=== PATIENT | female | born 1960 | race Caucasian/White ===

== ENCOUNTER → 2018-04-15 | Outpatient (CLI) | payer OTHER | LOC: FIMAGING 15:29 | PROVIDERS: ATTEND Internal Medicine | DX: M12.841 Other specific arthropathies, not elsewhere classified, right hand (principal); M12.842 Other specific arthropathies, not elsewhere classified, left hand ==

== ENCOUNTER → 2018-06-08 | Outpatient (CLI) | payer OTHER | LOC: FIMAGING 12:55 | PROVIDERS: ATTEND Internal Medicine | DX: Z13.820 Encounter for screening for osteoporosis (principal); M85.89 Other specified disorders of bone density and structure, multiple sites; Z78.0 Asymptomatic menopausal state; Z92.241 Personal history of systemic steroid therapy ==

== ENCOUNTER → 2018-10-06 | Outpatient (CLI) | payer OTHER | LOC: FIMAGING 13:52 | PROVIDERS: ATTEND Internal Medicine | DX: M81.0 Age-related osteoporosis without current pathological fracture (principal) ==

== ENCOUNTER → 2019-01-03 | Outpatient (CLI) | payer OTHER | LOC: GIMAGING 15:48 → EDSTATUS 15:59 | PROVIDERS: ATTEND Physician Assistant | DX: M41.86 Other forms of scoliosis, lumbar region (principal); M89.38 Hypertrophy of bone, other site; S33.110A Subluxation of L1/L2 lumbar vertebra, initial encounter; S33.120A Subluxation of L2/L3 lumbar vertebra, initial encounter; M50.31 Other cervical disc degeneration, high cervical region; Z98.1 Arthrodesis status | CPT/HCPCS: 72050-PO; 72100-PO ==